=== PATIENT | male | born 1995 | race Caucasian/White ===

== ENCOUNTER 2018-05-03 08:00 | Outpatient (CLI) | payer OTHER | END 2018-05-03 23:59 | disposition home or self-care (01) | LOC: LAB.R 08:00 | PROVIDERS: ATTEND Family Medicine | DX: R19.7 Diarrhea, unspecified (principal) | CPT/HCPCS: 81599; 82274; 83630; 87045; 87046; 87177; 87209; 87329; 87493 ==